=== PATIENT | male | born 1980 | race Caucasian/White ===

== ENCOUNTER 2021-03-17 21:26 | Emergency (ER) | payer OTHER ==
[~2021-03-17] VITALS: Ht 172.7 cm; Wt 99.8 kg
[~2021-03-17 21:26] MED LIST: LOSA50TA57 PO; RANI-287 PO; SYN.1 PO; [UNRECOGNIZED DRUG - CODE] IM
[2021-03-17 21:38] VITALS: BP 158/101
--- NOTE | 2021-03-17 22:06 | NUR ---
pt ambularted to bed 05
[2021-03-17] MEDS ORDERED: LORazepam 0.5 MG TAB PO ONE (22:40)
[2021-03-17] MEDS ORDERED: KETOROLAC 60 MG/2 ML VIAL IM ONE (22:40)
--- NOTE | 2021-03-17 22:50 | NUR ---
40 YO/M BIB SELF W C/O GROIN PAIN STRONGER ON L TESTICLE 8/10 PRESSURE/BLOATING LIKE AND SUPRAPUBIC TENDERNESS. PATIENT ALSO REPORTS SLIGHT REDNESS TO L TESTICLE, DENIES SWELLING. PATIENT DENIES ANY INJURY/TRAUMA. PATIENT ALSO REPORTS BROWN URINE, DRIBBLING AND RETENTION X TODAY, DENIES BURNING URINATION, FREQUENCY OR URGENCY. DENIES FEVER, N/V/D OR CONSTIPATION. PATIENT ALSO REPORTS ANXIETY X1MO S/P OF CLOSE FRIEND. PATIENT LAYING IN BED LOCKED IN LOWEST POSITION, HOB ELEVATED, X1 SIDERAIL UP. BREATHING EVEN AND UNLABORED. BP AT 172/106 ERMD AWARE. NAD NOTED, WILL CONTINUE TO MONITOR. PMH: HTN NKA
[2021-03-17 23:17] LABS: ANION GAP 15.4 (8-16); CARBON DIOXIDE 27.1 mmol/L (21-32); CREATININE 1.2 mg/dL (0.6-1.3); POTASSIUM 4.5 mmol/L (3.5-5.1)
--- NOTE | 2021-03-17 23:33 | NUR ---
PATIENT REPORTS FEELING BETTER, DENIES ANY PAIN AT THIS TIME. PATIENT SITTING IN BED LOCKED IN LOWEST POSITION, X1 SIDERAIL UP. BREATHING EVEN AND UNLABORED. NAD NOTED, WILL CONTINUE TO MONITOR.
[2021-03-18 00:06] LABS: APPEARANCE,URINE HAZY (CLEAR); BILIRUBIN,URINE 1+ (NEGATIVE); BLOOD, URINE 3+ (NEGATIVE); COLOR,URINE DARK YELLOW (YELLOW); LEUKOCYTE ESTERASE ,URINE NEGATIVE (NEGATIVE); NITRITE, URINE NEGATIVE (NEGATIVE); UGLUCOSE NEGATIVE (NEGATIVE)
[2021-03-18 00:26] LABS: RBC,URINE TOO NUMEROUS TO COUN /HPF (0-5); WBC,URINE 0-5 /HPF (0-5)
[2021-03-18] MEDS ORDERED: PHEN-1877 PO (00:33)
[2021-03-18] MEDS ORDERED: CEPH-588 PO (00:33)
[2021-03-18] MEDS ORDERED: cephALEXin 500 MG CAP PO ONE (00:35)
--- NOTE | 2021-03-18 00:45 | NUR ---
PATIENT REPORTS FEELING BETTER, DENIES ANY PAIN AT THIS TIME, REPORTS RELIEF ON ANXIETY. PATIENT SITTING IN BED LOCKED IN LOWEST POSITION, X1 SIDERAIL UP. BREATHING EVEN AND UNLABORED. NAD NOTED, WILL CONTINUE TO MONITOR.
[2021-03-18 01:00] VITALS: BP 158/101
--- NOTE | 2021-03-18 01:00 | NUR ---
Patient discharged with v/s stable. Written and verbal after care instructions given and explained. Patient alert, oriented and verbalized understanding of instructions. Ambulatory with steady gait. All questions addressed prior to discharge. ID band removed. Patient advised to follow up with PMD. Rx of KEFLEX, PYRIDIUM given. Patient educated on indication of medication including possible reaction and side effects. Opportunity to ask questions provided and answered.
== END 2021-03-18 01:00 | disposition home or self-care (01) ==
LOC: MED 21:26
DX: N39.0 Urinary tract infection, site not specified (principal); R31.9 Hematuria, unspecified; K21.9 Gastro-esophageal reflux disease without esophagitis; I10 Essential (primary) hypertension
CPT/HCPCS: 36415; 80048; 81001; 96372; 99283; J1885